=== PATIENT | male | born 1950 ===

== ENCOUNTER 2016-09-02 07:13 | Day surgery (SDC) | payer MEDICARE, MEDICAID ==
[2014-02-22 17:47] VITALS: BMI 25.1
[2016-09-02 07:58] VITALS: TEMP 97
[2016-09-02] MEDS ORDERED: Propofol 10 mg/ml Inj (20 ML) ONE ×3 (09:43→10:08)
[2016-09-02] MEDS ORDERED: Lactated Ringer's 500 ML IV SCH (10:00)
[2016-09-02 10:42] VITALS: O2SAT 100
[2016-09-02 11:24] VITALS: BP 127/61; PULSE 72; RESP 16
== END 2016-09-02 11:20 | disposition home or self-care (01) ==
LOC: C.ENDO 07:13
PROVIDERS: ATTEND Internal Medicine
DX: K29.70 Gastritis, unspecified, without bleeding (principal); K59.00 Constipation, unspecified; D12.2 Benign neoplasm of ascending colon; K63.5 Polyp of colon; K52.9 Noninfective gastroenteritis and colitis, unspecified; K22.8 Other specified diseases of esophagus; E11.9 Type 2 diabetes mellitus without complications; I10 Essential (primary) hypertension
CPT/HCPCS: 43239; 45380; 82948; 88305; 88313; 88342; J2704; J3010; J7120